=== PATIENT | female | born 1985 | race Caucasian/White ===

== ENCOUNTER → 2020-03-31 | Outpatient (CLI) | payer OTHER | LOC: MC.RAD 10:23 | DX: Z12.31 Encounter for screening mammogram for malignant neoplasm of breast (principal) ==

== ENCOUNTER → 2021-03-09 | Outpatient (CLI) | payer OTHER ==
[~2021-03-09] MED LIST: IBU800 M1 PO; PRENATAL TABLET PO
== END ==
LOC: ZCOL.LAB 08:00
DX: Z20.822 Contact with and (suspected) exposure to COVID-19 (principal)

== ENCOUNTER 2021-03-11 22:59 | Inpatient (IN) | payer OTHER ==
[~2021-03-11] VITALS: Ht 160 cm; Wt 76.4 kg
[2021-03-11] MEDS ORDERED: PRENATAL TABLET PO (23:21)
[2021-03-11 23:30] VITALS: BP 121/77; PULSE 87; TEMP 98.4
[2021-03-11 23:55] LABS: BASO % 0.2 % (0.0-2.0); EOS # 0.1 K/mm3 (0.0-0.7); EOS % 0.8 % (0-4.0); GRAN # 9.7 K/mm3 (1.4-6.5); GRAN % 70.7 % (42.2-75.2); HEMATOCRIT 33.3 % (37.0-47.0); HEMOGLOBIN 11.5 g/dl (12.5-16.0); LYMPH # 2.6 K/mm3 (1.2-3.4); MEAN CELL VOLUME 86 fl (80.0-100.0); MEAN CORPUSCULAR HEMOGLOBIN 30 pg (27.0-31.0); MEAN CORPUSCULAR HGB CONC 35 g/dl (33.0-37.0); MEAN PLATELET VOLUME 10.8 fl (7.4-10.4); MONO # 1.2 K/mm3 (0.1-0.6); MONO % 8.6 % (1.7-9.3); PLATELET COUNT 174 K/mm3 (130-400); RED BLOOD COUNT 3.88 M/mm3 (4.10-5.30); REDCELL DISTRIBUTION WIDTH-CV 13.6 % (11.5-14.5)
[2021-03-12] VITALS (13 sets, daily range): BP systolic 96–132; BP diastolic 51–69; PULSE 61–96; TEMP 97.7–98.6
--- NOTE | 2021-03-12 00:20 | NUR ---
2315 G3L1 at 39.1 weeks gestation to LDR5 with c/o strong, regular contractions. Patient assisted to bed and EFMs explained and applied. FHR 120 bpm, moderate variability and accelerations noted. Late decelerations noted at 2324 and 2327. Patient positioned to left side. Contractions q2-3 minutes apart, patient tense and breathing through them. VSS. SVE 6/75/-2. Plan of care reviewed with patient and spouse. 2330 Dr. Jiménez and updated on patient status, admit orders recieved. 2335 IV started in right hand with labs drawn from site. LR bolus infusing. 2345 Patient request epidural. FLIGHT READINESS TECHNICIAN notified. 0000 Patient more uncomfortable with contractions, c/o pressure and feeling the urge to push. SVE 8/100/0 with bloody show noted. FLIGHT READINESS TECHNICIAN here for epidural, patient wishes to proceed with procedure. 0003 Lulu, FLIGHT READINESS TECHNICIAN to room to place epidural. Dr. Jiménez called for delivery. 0005 Patient in side lying position for epidural placement, FHR intermittently tracing. 0010 Test dose administered, see anesthesia record for details of procedure. 0011 SROM with clear fluid noted, bloody show. 0014 Dr. Jiménez to room, patient prepped for delivery. Coached to push with contractions. [address] viable male by Dr. Jiménez, cord clamped and cut and infant to the care of the nursery RN. 0023 Spontaneous delivery of placenta. Pitocin infusing at 333ml/hr per orders and protocol. Fundus firm, lochia WNL.
[2021-03-13 07:59] VITALS: BP 100/68; PULSE 84; TEMP 97.9
[2021-03-13] MEDS ORDERED: IBU800 M1 PO (10:56)
[2021-03-13 16:00] VITALS: BP 109/70; PULSE 79
== END 2021-03-13 18:35 | disposition home or self-care (01) | DRG 807 ==
LOC: LDRO 22:59 → OB 23:42 → LDR 23:42 → OB 03-12 04:27
PROVIDERS: Obstetrics & Gynecology; ADMIT Student in an Organized Health Care Education/Training Program
PROC: 10E0XZZ Delivery of Products of Conception, External Approach (ICD-10-PCS; principal; 2021-03-12)
PROC: 0HQ9XZZ Repair Perineum Skin, External Approach (ICD-10-PCS; 2021-03-12)
DX: O69.81X0 Labor and delivery complicated by cord around neck, without compression, not applicable or unspecified (principal); Z37.0 Single live birth; O70.0 First degree perineal laceration during delivery; Z3A.39 39 weeks gestation of pregnancy; Z23 Encounter for immunization
CPT/HCPCS: J2590; J7120